=== PATIENT | male | born 1995 | race Caucasian/White ===

== ENCOUNTER 2016-12-12 02:20 | Emergency (ER) | payer OTHER ==
[~2016-12-12] VITALS: Ht 190.5 cm; Wt 97.6 kg
[2016-12-12 02:24] VITALS: TEMP 36.9; Ht 190.5 cm; Wt 97.6 kg
[2016-12-12 02:48] VITALS: O2SAT 95
[2016-12-12] MEDS ORDERED: LIDOCAINE/EPINEPHRINE 1% 20 ML VIAL INFIL ONE (03:00)
[2016-12-12 03:27] LABS: BUN/CREATININE RATIO 9.7 (10-20); CALCIUM 8.6 mg/dl (8.5-10.1); CREATININE 1.3 mg/dl (0.60-1.40); POTASSIUM 3.8 mmol/L (3.5-5.1)
--- NOTE | 2016-12-12 05:20 | EMERGENCY ROOM VISIT NOTE ---
History First contact with patient: 02:34 Chief Complaint: FALL Stated Complaint: FALL/LACERATION History of Present Illness The patient is a 21 year old male who presents to the Emergency Room via ALS for evaluation after a fall. The patient is unsure how he fell. He does admit to drinking liquor and beer all day. He denies any pain at this time. Per EMS , the patient was found after falling downtown and sustained a laceration to the back of his head. The patient denies any drug use. He denies any further trauma. Review of Systems A complete 10-point Review of Systems was discussed with the patient, with pertinent positives and negatives listed in the History of Present Illness. All remaining Review of Systems questions can be considered negative unless otherwise specified. Social History Smoking Status: Never Smoker Current/Historical Medications No Active Prescriptions or Reported Meds Allergies Coded Allergies: No Known Allergies (Unverified , 12/12/16) Physical Exam Vital Signs Date Time Temp Pulse Resp B/P Pulse Ox O2 Delivery O2 Flow Rate FiO2 12/12/16 05:26 85 18 140/82 96 12/12/16 04:30 103 16 157/93 12/12/16 02:48 95 Room Air 12/12/16 02:38 127 12/12/16 02:24 36.9 110 16 161/91 96 Room Air Physical Exam VITALS: Vitals are noted on the nurse's note and reviewed by myself. Vital signs stable. GENERAL: This is a 21-year-old male, in no acute distress, smells of EtOH, nondiaphoretic, well-developed well-nourished. SKIN: There is a 1.5 cm laceration to the posterior aspect of the scalp. HEAD: Normocephalic atraumatic. EARS: External auditory canals clear, tympanic membranes pearly hamm without erythema or effusion bilaterally. No hemotympanum. EYES: Pupils equal round and reactive to light and accommodation. Extraocular movements intact. NOSE: No deformities. No bleeding from the nose. MOUTH: Mucous membranes moist. No loose or chipped teeth. NECK: C-collar in place. No tenderness of the cervical spinous processes. HEART: Regular rate and rhythm without murmurs gallops or rubs. LUNGS: Clear to auscultation bilaterally without wheezes, rales or rhonchi. ABDOMEN: Soft, nontender to palpation. MUSCULOSKELETAL: No deformities. Full range of motion. Strength 5/5 throughout. NEURO: Patient was alert and oriented to person place and time. Speech is mildly slurred. Medical Decision & Procedures ER Provider Diagnostic Interpretation: CT HEAD: No evidence of acute intracranial abnormality or skull fracture. Right parietal scalp swelling. CT C SPINE: No fracture or malalignment. Small subcentimeter bilateral thyroid low-density lesions. Radiologist: Yoni Phan MD Laboratory Results 12/12/16 02:54 Test 12/12/16 02:54 Anion Gap 7.0 mmol/L (3-11) Est Creatinine Clear Calc Drug Dose 106.5 ml/min Estimated GFR () 89.8 Estimated GFR (Non- 77.5 BUN/Creatinine Ratio 9.7 (10-20) Calcium Level 8.6 mg/dl (8.5-10.1) Ethyl Alcohol mg/dL 398.0 mg/dl (0-3) Procedure Verbal consent was obtained prior to performing the procedure. 2 cc of 1% buffered lidocaine was used to anesthetize the scalp laceration. The wound was cleansed and prepped in the typical sterile fashion utilizing normal saline and Betadine. The wound was sterilely draped. The wound was copiously irrigated with normal saline and Betadine. The wound was closed using 4 joseph with the wound edges being well approximated. Patient tolerated the procedure well. No complications were met. Hemostasis was achieved. Medical Decision Differential diagnosis includes alcohol intoxication, drug intoxication, intracranial hemorrhage, concussion, among others. The patient was evaluated as above. He does appear to be intoxicated but was alert and oriented to person, place and time. CT of the head and neck were performed and read by stat rad with no acute findings. Scalp laceration repair was performed as noted in the procedure section. The patient's alcohol was found to be 398, but he was alert at all times. He was able to contact his girlfriend, who arrived and agreed to take responsibility for the patient and take him home. Wound care instructions were discussed with the patient and his girlfriend. They verbalized understanding of the assessment and treatment plan and the patient was discharged home in good condition under her care. Impression Primary Impression: Alcohol intoxication Additional Impression: Scalp laceration Departure Information Dispostion Home / Self-Care Condition GOOD Prescriptions No Active Prescriptions or Reported Meds Referrals No Doctor, Assigned (PCP) Patient Instructions [facility]: [employer] Students and Alcohol Related Visits, My [facility] Additional Instructions Do not drink anymore alcohol today. Rest and drink plenty of fluids. You have received 4 joseph on your scalp. These joseph are NOT dissolvable and WILL need to be removed by a health care provider in 10 days. You can return to the Emergency Department or contact your Primary Care Provider to have these joseph removed. Proper wound care is essential for adequate wound healing and infection prevention. You can shower and clean the wound with soap and water. Do scour over the wound, pat dry with a towel. Do not submerse the wound until the joseph have been removed. You can use an antibiotic ointment with a dressing over the wound for the next 3-4 days. After this time you may leave the wound dry and open to the air. If crust develops over the wound you can use a Q-tip to apply a 1:1 peroxide:water solution to clean the wound. Look for signs of infection of the wound including: increased pain, swelling, foul discharge, streaking, or increased temperature. If any of these are noticed you should return to the Emergency Department for further assessment and treatment. As with any laceration you may have received nerve damage to the surrounding tissues. This damage may or may not be permanent. For pain control, you can use the following oqgh-[id number] medicines (if >12 yo): - Regular strength (325mg/tab) Tylenol (acetaminophen) 2 tabs every 4-6 hours as needed. Do not exceed 12 tablets in a 24 hour period. Avoid taking more than 4 grams (4000 mg) of Tylenol per day. This includes any other sources of acetaminophen you may take on a regular basis. - Regular strength (200 mg/tab) Advil (ibuprofen) 1-2 tabs every 4-6 hours as needed. Do not exceed a dose of 3200 mg per day. Return to the emergency department if your symptoms worsen despite treatment course outlined above. Problem Qualifiers Primary Impression: Alcohol intoxication Complication of substance-induced condition: uncomplicated Qualified Codes: F10.120 - Alcohol abuse with intoxication, uncomplicated Additional Impression: Scalp laceration Encounter type: initial encounter Qualified Codes: S01.01XA - Laceration without foreign body of scalp, initial encounter
[2016-12-12 05:26] VITALS: BP 140/82; PULSE 85; O2SAT 96
--- NOTE | 2016-12-12 07:22 | DIAGNOSTIC IMAGING REPORT ---
CERVICAL SPINE CT CT DOSE: HISTORY: fall, head injury TECHNIQUE: Multiaxial CT images of the cervical spine were performed and reformatted in the sagittal and coronal plane without the use of contrast. COMPARISON: None. FINDINGS: No fractures. No subluxation. Prevertebral soft tissues and the C1-C2 interval are intact. No pneumothorax. Subcentimeter thyroid nodules. IMPRESSION: No fractures within the cervical spine. Electronically signed by: Parish Tee M.D. 12/12/2016 7:20 AM Dictated Date/Time: 12/12/2016 7:18 AM
--- NOTE | 2016-12-12 08:17 | DIAGNOSTIC IMAGING REPORT ---
HEAD CT NONCONTRAST CT DOSE: 1117.04 mGy.cm HISTORY: head injury TECHNIQUE: Multiaxial CT images of the head were performed without the use of intravenous contrast. Automated exposure control was utilized for this study. Comparison: None. Findings: The paranasal sinuses and mastoid air cells are clear. The calvarium and skull base are intact. The ventricles and sulci are within normal limits. There is no mass, hematoma, midline shift, or acute infarct. Right parietal scalp swelling. Impression: No acute intracranial abnormality. Right parietal scalp swelling. Electronically signed by: Parish Tee M.D. 12/12/2016 8:16 AM Dictated Date/Time: 12/12/2016 6:48 AM
== END 2016-12-12 05:24 | disposition home or self-care (01) ==
LOC: C.EDA 02:24
DX: S01.01XA Laceration without foreign body of scalp, initial encounter (principal); W19.XXXA Unspecified fall, initial encounter; F10.129 Alcohol abuse with intoxication, unspecified; Y90.8 Blood alcohol level of 240 mg/100 ml or more

== ENCOUNTER 2016-12-23 14:06 | Emergency (ER) | payer OTHER ==
[~2016-12-23] VITALS: Ht 190.5 cm; Wt 95.1 kg
[2016-12-23 14:09] VITALS: BP 133/82; PULSE 100; TEMP 36.8; O2SAT 100; Ht 190.5 cm; Wt 95.1 kg
--- NOTE | 2016-12-23 17:19 | EMERGENCY ROOM VISIT NOTE ---
ED Visit Note First contact with patient: 14:13 CHIEF COMPLAINT: Staple removal. HISTORY OF PRESENT ILLNESS: Mr. Roach is a 21-year-old white male who ambulates into the ED requesting staple removal. Patient reports 11 days ago he fell and sustained a scalp laceration that was stapled shut. After repair of his injury and discharge she reports she has been feeling well and has had no pain, swelling, redness, or drainage from the wound and he feels like the laceration is healing well. PHYSICAL EXAM: Vital Signs: Date Time Temp Pulse Resp B/P Pulse Ox O2 Delivery O2 Flow Rate FiO2 12/23/16 14:09 36.8 100 20 133/82 100 Room Air Head: Clean dry and intact wound on the right parietal without signs of infection (erythema, swelling, tenderness, purulent drainage) ED COURSE: For sutures were removed without any difficulty and there was no separation of the wound edges. DISPOSITION: Patient discharged home in stable condition. CLINICAL IMPRESSION: Staple removal. Well healing wound. PLAN: Wound care and signs of infection were discussed with the patient. Patient was encouraged to follow-up with primary care provider return to the ED for any signs of infection or any new/concerning symptoms.
== END 2016-12-23 14:30 | disposition home or self-care (01) ==
LOC: C.EDB 14:07 → C.EDD 14:30
DX: Z48.02 Encounter for removal of sutures (principal)